=== PATIENT | female | born 1980 | race Caucasian/White ===

== ENCOUNTER 2017-09-27 10:44 | Outpatient (CLI) | payer OTHER, SELFPAY ==
--- NOTE | 2017-09-27 13:48 | PM.OBTRLD ---
Visit Information Visit Information Date of evaluation: 09/27/17 Primary OB Provider: Adali Jeter On-call OB Provider: Kerline Ochoa Reason for Evaluation: Yes non-stress test non-stress test reason: other (Post dates) PFSH Medical History Plantar warts (Resolved ~1997) Vaginal hematoma (Resolved ~08/2015) Surgical History Anesthesia (Inactive) Family History Grandfather Stroke Grandmother Mental health problem Grandfather Heart disease Evaluation Evaluation Baseline heart rate: 135 Variability: Moderate (11-25) monitor accelerations: Present monitor decelerations: Absent Category of Tracing: I
== END 2017-09-27 11:30 | disposition home or self-care (01) ==
LOC: LABOR 13:57 → OB 09-29 14:27
PROVIDERS: PCP Physician Assistant; Visit Provider Obstetrics & Gynecology
DX: O48.0 Post-term pregnancy (principal); Z3A.40 40 weeks gestation of pregnancy
CPT/HCPCS: 59025; G0378; G0379

== ENCOUNTER 2017-10-01 09:29 | Inpatient (IN) | payer OTHER, SELFPAY ==
[2017-10-01 12:31] VITALS: BP 119/79
[2017-10-01 12:32] LABS: Add Manual Diff / Slide Review NO; Basophils Percent Auto 0.6 % (0-2); Eosinophils Percent Auto 0.4 % (2-4); Hemoglobin 12.5 g/dL (12.0-16.0); Lymphocytes Percent Auto 14.2 % (25-40); Mean Corpuscular HGB Conc 33.7 % (30-36); Mean Corpuscular Hemoglobin 29.9 PG (26-34); Mean Corpuscular Volume 88.9 fL (80-100); Neutrophils Absolute Auto 11700 /uL (3000-5900); Neutrophils Percent Auto 80.8 % (50-75); Platelet Count 244 X10^3/uL (150-400); Red Blood Cell Count 4.16 X10^6/uL (4.0-5.2); Red Cell Distribution Width 13.8 % (11.6-14.8); White Blood Cell Count 14.5 X10^3/uL (4.5-11.0)
--- NOTE | 2017-10-01 13:11 | PM.OBHP.1 ---
OB HPI Date/Time Date of admission: 10/01/17 Date Patient Seen: 10/01/17 Time Patient Seen: 13:23 History of Present Illness Chief complaint: observation of labor : 2 Para: 1 Estimated Date of Delivery: 09/26/17 Estimated Gestational Age (weeks): 40w5d Narrative: Gretta Kaplan is a 37 year old female at 40 weeks 5 days admitted in active labor History of Present care: initiated at week # (9 weeks) Dating criteria: LMP confirmed by 1st trimester US Ultrasounds: normal mid trimester US Obstetrical complications: none Medical complications: none Preadmission Labs Blood type: A (-) negative -: Antibody screen: negative, GBS status: negative, HBsAG: negative, HIV: negative, HSV 1: negative and HSV 2: negative -: Gonorrhea screen: not detected -: Rubella: immune and Varicella: immune HCAB: negative Quad screen: Normal 1 hr GTT: 72 Prior (ies) History: 08/31/2015 vaginal at 40 weeks with a vaginal hematoma requiring a blood transfusion Evaluation Evaluation Laboratory results: Laboratory Tests 10/01/17 12:15 WBC 14.5 H RBC 4.16 Hgb 12.5 Hct 37.0 MCV 88.9 MCH 29.9 MCHC 33.7 RDW 13.8 Plt Count 244 Neut % (Auto) 80.8 H Lymph % (Auto) 14.2 L [place] % (Auto) 4.0 Eos % (Auto) 0.4 L Baso % (Auto) 0.6 Neut # (Auto) 41400 H PFSH Medical History Plantar warts (Resolved ~1997) Vaginal hematoma (Resolved ~08/2015) Surgical History Anesthesia (Inactive) Family History Grandfather Stroke Grandmother Mental health problem Grandfather Heart disease Social History Smoking Status: Never smoker Meds Allergies Allergy/AdvReac Type Severity Reaction Status Date / Time No Known Allergies Allergy Uncoded 08/02/17 12:45 Review of Systems Review of Systems All systems reviewed & are unremarkable except as noted in HPI and below Exam Vital Signs (past 8 hours): Vital Signs - 8 hr 10/01/17 12:31 Blood Pressure 119/79 Const General: comfortable Nutritional Appearance: well nourished HENMT Head: normal to inspection Resp Effort & Inspection: normal respiratory effort Auscultation: clear to auscultation bilaterally Cardio Rate: regular rate Rhythm: regular rhythm Manual OB Exam: dilated 8, effaced fully and station 0 Uterus Location (Fundal Height): 39 Presentation: vertex Estimated Weight (lbs): 9 Amniotic Fluid: clear Extrem Other: No edema and DTRs are normal Objective Labs Result Diagrams: 10/01/17 12:15 Labs: Laboratory Results - last 24 hr 10/01/17 12:15 WBC 14.5 H RBC 4.16 Hgb 12.5 Hct 37.0 MCV 88.9 MCH 29.9 MCHC 33.7 RDW 13.8 Plt Count 244 Neut % (Auto) 80.8 H Lymph % (Auto) 14.2 L [place] % (Auto) 4.0 Eos % (Auto) 0.4 L Baso % (Auto) 0.6 Neut # (Auto) 46491 H Assessment and Plan (1) Post term over 40 weeks: Current visit: Yes Status: Acute Plan: Plan: Forty and 5/7 weeks by dates 2nd in active labor. Anticipate vaginal delivery.
--- NOTE | 2017-10-01 13:27 | P.HPOB_ITS ---
OB HPI Date/Time Date of admission: 10/01/17 Date Patient Seen: 10/01/17 Time Patient Seen: 13:23 History of Present Illness Chief complaint: observation of labor : 2 Para: 1 Estimated Date of Delivery: 09/26/17 Estimated Gestational Age (weeks): 40w5d Narrative: Gretta Kaplan is a 37 year old female at 40 weeks 5 days admitted in active labor History of Present care: initiated at week # (9 weeks) Dating criteria: LMP confirmed by 1st trimester US Ultrasounds: normal mid trimester US Obstetrical complications: none Medical complications: none Preadmission Labs Blood type: A (-) negative -: Antibody screen: negative, GBS status: negative, HBsAG: negative, HIV: negative, HSV 1: negative and HSV 2: negative -: Gonorrhea screen: not detected -: Rubella: immune and Varicella: immune HCAB: negative Quad screen: Normal 1 hr GTT: 72 Prior (ies) History: 08/31/2015 vaginal at 40 weeks with a vaginal hematoma requiring a blood transfusion Evaluation Evaluation Laboratory results: Laboratory Tests 10/01/17 12:15 WBC 14.5 H RBC 4.16 Hgb 12.5 Hct 37.0 MCV 88.9 MCH 29.9 MCHC 33.7 RDW 13.8 Plt Count 244 Neut % (Auto) 80.8 H Lymph % (Auto) 14.2 L [place] % (Auto) 4.0 Eos % (Auto) 0.4 L Baso % (Auto) 0.6 Neut # (Auto) 55435 H PFSH Medical History Plantar warts (Resolved ~1997) Vaginal hematoma (Resolved ~08/2015) Surgical History Anesthesia (Inactive) Family History Grandfather Stroke Grandmother Mental health problem Grandfather Heart disease Social History Smoking Status: Never smoker Meds Allergies Allergy/AdvReac Type Severity Reaction Status Date / Time No Known Allergies Allergy Uncoded 08/02/17 12:45 Review of Systems Review of Systems All systems reviewed & are unremarkable except as noted in HPI and below Exam Vital Signs (past 8 hours): Vital Signs - 8 hr 3 10/01/17 12:31 Blood Pressure 119/79 Const General: comfortable Nutritional Appearance: well nourished HENMT Head: normal to inspection Resp Effort & Inspection: normal respiratory effort Auscultation: clear to auscultation bilaterally Cardio Rate: regular rate Rhythm: regular rhythm Manual OB Exam: dilated 8, effaced fully and station 0 Uterus Location (Fundal Height): 39 Presentation: vertex Estimated Weight (lbs): 9 Amniotic Fluid: clear Extrem Other: No edema and DTRs are normal Objective Labs Result Diagrams: 10/01/17 12:15 Labs: Laboratory Results - last 24 hr 10/01/17 12:15 WBC 14.5 H RBC 4.16 Hgb 12.5 Hct 37.0 MCV 88.9 MCH 29.9 MCHC 33.7 RDW 13.8 Plt Count 244 Neut % (Auto) 80.8 H Lymph % (Auto) 14.2 L [place] % (Auto) 4.0 Eos % (Auto) 0.4 L Baso % (Auto) 0.6 Neut # (Auto) 97230 H Assessment and Plan (1) Post term over 40 weeks: Current visit: Yes Status: Acute Plan: Plan: Forty and 5/7 weeks by dates 2nd in active labor. Anticipate vaginal delivery.
[2017-10-01] MEDS: OXYTOCIN 10 UNIT/ML VIAL IM (13:57)
--- NOTE | 2017-10-01 14:26 | PM.OBPRVD ---
Delivery date: 10/01/17 Induction method: none Delivery monitor: external FHT and external uterine Route of delivery: Laceration description: Perineal - 2nd Degree Delivery repair: chromic (3-0 in the usual 2 layer fashion) Estimated blood loss (mL): 150 Anesthesia type: Local Baby 1: gender: Female Presentation: vertex position: Right Occiput Posterior Placenta delivery description: Spontaneous and Normal Configuration cord vessel description: 3 Vessels score (1 min): 8 score (5 min): 9 Plan for aftercare: Routine care. Patient is Rh negative so I will need to check for baby blood type to determine if RhoGAM is indicated.
[2017-10-01] MEDS: ACETAMINOPHEN 325 MG TABLET 650 MG PO (16:38)
[2017-10-01] MEDS: DERMOPLAST SPRAY 20% 60 ML 1 SPRAY TOP (16:38)
[2017-10-01] MEDS: IBUPROFEN 600 MG TABLET PO (21:06)
[2017-10-02] MEDS: IBUPROFEN 600 MG TABLET PO ×2 (05:02→11:20)
[2017-10-02 06:48] LABS: Add Manual Diff / Slide Review NO; Basophils Percent Auto 0.7 % (0-2); Eosinophils Percent Auto 0.6 % (2-4); Hematocrit 33.8 % (36-46); Hemoglobin 11.4 g/dL (12.0-16.0); Lymphocytes Percent Auto 14.8 % (25-40); Mean Corpuscular HGB Conc 33.6 % (30-36); Mean Corpuscular Hemoglobin 29.9 PG (26-34); Mean Corpuscular Volume 89.2 fL (80-100); Neutrophils Absolute Auto 11400 /uL (3000-5900); Neutrophils Percent Auto 78.9 % (50-75); Platelet Count 239 X10^3/uL (150-400); Red Blood Cell Count 3.79 X10^6/uL (4.0-5.2); Red Cell Distribution Width 13.8 % (11.6-14.8); White Blood Cell Count 14.5 X10^3/uL (4.5-11.0)
--- NOTE | 2017-10-02 10:23 | PM.OBDS.1 ---
Discharge Providers Date of admission: 10/01/17 09:29 Primary care physician: Rowena Mendez PA-C Consults: 10/01/17 16:27 Consult to Reliability Technician Routine Comment: Discharge provider: Adali Jeter MD Summary Date Patient Seen: 10/02/17 Time Patient Seen: 10:24 Hospital Course: Patient arrived on Labor and delivery in active labor. She progressed normally and delivered spontaneously over an intact perineum a viable female weighing 9 lb 2 oz in the direct OP position. Patient had a second-degree tear repaired. Both infant mother doing well . She denies any signs or symptoms of preeclampsia. No depression. She is urinating and ambulating well. Her bleeding is minimal. Peripartum Data Infant Delivery Method: Natural Vaginal Laceration description: Perineal - 2nd Degree complications: none [place] 1: Gender: Female Disposition of : home Discharge Diagnosis (1) Post term over 40 weeks: Status: Acute (2) Vaginal delivery: Status: Acute Status at Discharge Functional status at discharge: independent ambulation Overall status at discharge: patient is progressing back to baseline Time Spent with Patient Total time spent providing and/or coordinating discharge services: Less than 30 minutes Specific discharge activities: Routine care Objective Labs Result Diagrams: 10/02/17 06:35 Labs: Laboratory Results - last 24 hr 10/01/17 10/01/17 10/02/17 12:15 12:15 06:35 WBC 14.5 H 14.5 H RBC 4.16 3.79 L Hgb 12.5 11.4 L Hct 37.0 33.8 L MCV 88.9 89.2 MCH 29.9 29.9 MCHC 33.7 33.6 RDW 13.8 13.8 Plt Count 244 239 Neut % (Auto) 80.8 H 78.9 H Lymph % (Auto) 14.2 L 14.8 L [place] % (Auto) 4.0 5.0 Eos % (Auto) 0.4 L 0.6 L Baso % (Auto) 0.6 0.7 Neut # (Auto) 65312 H 70496 H Blood Type A Negative Antibody Screen Negative Maternal Bleed 10/02/17 06:40 WBC RBC Hgb Hct MCV MCH MCHC RDW Plt Count Neut % (Auto) Lymph % (Auto) [place] % (Auto) Eos % (Auto) Baso % (Auto) Neut # (Auto) Blood Type Antibody Screen Maternal Bleed Negative Discharge Plan Discharge Plan Patient Disposition: Home, Self-Care Discharge Med Rec/Prescriptions Follow up/Referrals: Adali Jeter MD [Physician] - 1 Month Provider Discharge Instructions Diet: Regular Wound Care Report to your healthcare provider any signs of infection, such as:: chills, fever, increased pain and unusual drainage Discharge Data Primary Care Provider: Rowena Mendez Attending Provider: Adali Jeter Admit Date/Time: 10/01/17 09:29
--- NOTE | 2017-10-02 10:27 | P.DS_ITS ---
Discharge Providers Date of admission: 10/01/17 09:29 Primary care physician: Rowena Mendez PA-C Consults: 10/01/17 16:27 Consult to Reel Winder Routine Comment: Discharge provider: Adali Jeter MD Summary Date Patient Seen: 10/02/17 Time Patient Seen: 10:24 Hospital Course: Patient arrived on Labor and delivery in active labor. She progressed normally and delivered spontaneously over an intact perineum a viable female weighing 9 lb 2 oz in the direct OP position. Patient had a second-degree tear repaired. Both infant mother doing well . She denies any signs or symptoms of preeclampsia. No depression. She is urinating and ambulating well. Her bleeding is minimal. Peripartum Data Infant Delivery Method: Natural Vaginal Laceration description: Perineal - 2nd Degree complications: none [place] 1: Gender: Female Disposition of : home Discharge Diagnosis (1) Post term over 40 weeks: Status: Acute (2) Vaginal delivery: Status: Acute Status at Discharge Functional status at discharge: independent ambulation Overall status at discharge: patient is progressing back to baseline Time Spent with Patient Total time spent providing and/or coordinating discharge services: Less than 30 minutes Specific discharge activities: Routine care Objective Labs Result Diagrams: 10/02/17 06:35 Labs: Laboratory Results - last 24 hr 10/01/17 10/01/17 10/02/17 12:15 12:15 06:35 WBC 14.5 H 14.5 H RBC 4.16 3.79 L Hgb 12.5 11.4 L Hct 37.0 33.8 L MCV 88.9 89.2 MCH 29.9 29.9 MCHC 33.7 33.6 RDW 13.8 13.8 Plt Count 244 239 Neut % (Auto) 80.8 H 78.9 H Lymph % (Auto) 14.2 L 14.8 L [place] % (Auto) 4.0 5.0 Eos % (Auto) 0.4 L 0.6 L Baso % (Auto) 0.6 0.7 Neut # (Auto) 27409 H 39118 H Blood Type A Negative Antibody Screen Negative Maternal Bleed 10/02/17 06:40 WBC RBC Hgb Hct MCV MCH MCHC RDW Plt Count Neut % (Auto) Lymph % (Auto) [place] % (Auto) Eos % (Auto) Baso % (Auto) Neut # (Auto) Blood Type Antibody Screen Maternal Bleed Negative Discharge Plan Discharge Plan Patient Disposition: Home, Self-Care Discharge Med Rec/Prescriptions Follow up/Referrals: Adali Jeter MD [Physician] - 1 Month Provider Discharge Instructions Diet: Regular Wound Care Report to your healthcare provider any signs of infection, such as:: chills, fever, increased pain and unusual drainage Discharge Data Primary Care Provider: Rowena Mendez Attending Provider: Adali Jeter Admit Date/Time: 10/01/17 09:29
[2017-10-02 10:55] VITALS: BP 119/79; PULSE 81; TEMP 37.2
[2017-10-02] MEDS: DOCUSATE 250 MG CAPSULE PO (11:20)
[2017-10-02] MEDS: RHO(D) IMMUNE GLOBULIN 1,500 UNIT SYRINGE 1500 UNIT IM (11:20)
== END 2017-10-02 14:55 | disposition home or self-care (01) | DRG 775 ==
PROVIDERS: Admitting Provider Specialist; PCP Physician Assistant; Visit Provider Specialist
DX: O64.0XX0 Obstructed labor due to incomplete rotation of fetal head, not applicable or unspecified (principal); Z3A.40 40 weeks gestation of pregnancy; Z37.0 Single live birth; O70.1 Second degree perineal laceration during delivery
CPT/HCPCS: 36415; 59025; 59050; 59400; 85025; 85461; 86850; 86900; 86901; G0379; J2590; J2790